=== PATIENT | male | born 2000 | race Asian ===

== ENCOUNTER 2022-12-06 13:29 | Emergency (ER) | payer OTHER, SELFPAY ==
[2022-12-06] VITALS (19 sets, daily range): BP systolic 111–155; BP diastolic 71–99; PULSE 60–90; RESP 9–23; TEMP 36.9; O2SAT 97–100
--- NOTE | ~2022-12-06 | XR_ITS ---
EXAMINATION: XR chest 1V portable Exam Date/Time: 12/06/2022 14:15 CDT HISTORY: CHEST TIGHTNESS X5 DAYS Comparison: None. RESULT: Lines, tubes, and devices: None. Lungs and pleura: Clear. Cardiomediastinal silhouette: Normal. Other: No acute osseous or upper abdominal finding. IMPRESSION: No acute cardiopulmonary process. Reviewed, dictated and finalized at location K.
--- NOTE | 2022-12-06 13:32 | ECG_ITS ---
Measurements Intervals [place] Rate: 68 P: 82 OK: 159 QRS: 93 QRSD: 104 T: 65 QT: 371 QTc: 396 Interpretive Statements SINUS RHYTHM WITH SINUS ARRHYTHMIA RIGHT AXIS DEVIATION INCOMPLETE RIGHT BUNDLE BRANCH BLOCK BASELINE WANDER- I, III, V1, V4-V6 BORDERLINE ECG NO PREVIOUS ECG AVAILABLE FOR COMPARISON Electronically Signed On 12-06-2022 17:48:50 CDT by Kevin Ritter D.O.
[2022-12-06 14:09] LABS: Basophils Percent Auto 0.5 % (0.2-1.2); Eosinophils Absolute Auto 0.2 K/mm3 (0-0.3); Eosinophils Percent Auto 2.7 % (0-4.4); Hematocrit 46.4 % (42.0-52.0); Hemoglobin 15.9 g/dL (14.0-18.0); Immature Granulocyte Absolute 0.01 K/mm3 (0.00-0.031); Immature Granulocyte Percent A 0.2 % (0-0.5); Lymphocytes Absolute Auto 2.58 K/mm3 (0.9-3.2); Lymphocytes Percent Auto 43.3 % (18.3-44.2); Mean Corpuscular HGB Conc 34.3 g/dl (32-36); Mean Corpuscular Volume 84.5 fl (80-100); Mean Platelet Volume 9.8 fl (7.4-10.4); Monocytes Absolute Auto 0.4 K/mm3 (0.1-0.6); Monocytes Percent Auto 6.2 % (2.6-8.5); Neutrophils Absolute Auto 2.8 K/mm3 (1.3-6.7); Neutrophils Percent Auto 47.1 % (45.5-73.1); Platelet Count Result 252 k/mm3 (150-375); Red Blood Count 5.49 M/mm3 (4.6-6.20); Red Cell Distribution Width 12.4 % (11.5-14.5)
[2022-12-06 14:34] LABS: Anion Gap 9 mmol/L (8-16); Blood Urea Nitrogen 18 mg/dL (9-20); Calcium 9.3 mg/dL (8.4-10.2); Carbon Dioxide 30 mmol/L (22-30); Chloride 101 mmol/L (98-107); Estimated CRCL calculation 109 ml/min; Estimated Glomerular Filt Rate > 60; Glucose 91 mg/dL (65-110); Potassium 3.4 mmol/L (3.4-5.0); Sodium 140 mmol/L (137-145)
[2022-12-06 14:43] LABS: Troponin I < 0.012 ng/mL (0.000-0.034)
--- NOTE | 2022-12-06 15:29 | ED.CHESTPAIN ---
HPI - Chest Pain General Chief Complaint: Chest Pain Stated Complaint: left sided CP Time Seen by Provider: 12/06/22 13:39 Source: patient Mode of arrival: ambulatory Limitations: no limitations History of Present Illness HPI narrative: 22 years old [place] male presented to the ED with intermittent chest pain over the last few days mainly at night before going to bed. He denies any fever, chills, nausea, vomiting, shortness of breath, alcohol use or drug abuse. Patient is healthy otherwise, been working out for a while. Possible stress. Related Data Allergies Allergy/AdvReac Type Severity Reaction Status Date / Time No Known Allergies Allergy Verified 12/06/22 13:30 Review of Systems Review of Systems: All systems reviewed & are unremarkable except as noted in HPI and below Exam Narrative: General appearance: Well-developed, well-nourished Skin: Normal color Head: Normocephalic, nontraumatic Eyes: Clear conjunctiva ENT: Oropharynx normal, ears normal, nose normal Neck: Supple, nontender Chest and respiratory: Airway patent, no respiratory distress, no accessory muscle use Heart: Regular rate/rhythm Abdomen: Soft, nontender, no organomegaly, quiet bowel sounds Vascular: Normal peripheral pulses, normal capillary refill. 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, no gross motor deficit Course Reevaluation(s) Reevaluation #1: Patient still asymptomatic, denying any chest pain, Date: 12/06/22 Time: 15:38 Vital Signs Vital signs: Vital Signs Temperature 36.9 C 12/06/22 13:36 Pulse Rate 73 12/06/22 13:36 Respiratory Rate 18 12/06/22 13:36 Blood Pressure 148/99 H 12/06/22 13:36 Pulse Oximetry 100 12/06/22 13:36 Oxygen Delivery Room Air 12/06/22 13:36 Temperature 36.9 C 12/06/22 13:36 Pulse Rate 77 12/06/22 13:47 Respiratory Rate 18 12/06/22 13:47 Blood Pressure 155/99 H 12/06/22 13:47 Pulse Oximetry 100 12/06/22 13:47 Oxygen Delivery Room Air 12/06/22 13:44 MDM - Chest Pain MDM Narrative Medical decision making narrative: Patient presents with nonspecific chest pain worse mainly at night before going to bed. Musculoskeletal, stress related is my concern. Work-up today including blood work-up, EKG and chest x-ray showed no significant abnormality to explain patient condition. Patient is asymptomatic, The pt was discharged to home.the pt,s condition upon discharge was fair,education was provided to the pt in reference to the final impression,discharge study results,treatment,prognosis and need for follow up . Differential Diagnosis Differential diagnosis: Likely pneumothorax, atypical chest pain and chest pain Lab Data 12/06/22 14:04 12/06/22 14:04 Labs: Lab Results 12/06/22 Range/Units 14:04 WBC 6.0 (4.5-10.0) K/mm3 RBC 5.49 (4.6-6.20) M/mm3 Hgb 15.9 (14.0-18.0) g/dL Hct 46.4 (42.0-52.0) % MCV 84.5 (80-100) fl MCH 29.0 (26-34) pg MCHC 34.3 (32-36) g/dl RDW 12.4 (11.5-14.5) % Plt Count 252 (150-375) k/mm3 MPV 9.8 (7.4-10.4) fl Immature Gran % (Auto) 0.2 (0-0.5) % Neut % (Auto) 47.1 (45.5-73.1) % Lymph % (Auto) 43.3 (18.3-44.2) % [place] % (Auto) 6.2 (2.6-8.5) % Eos % (Auto) 2.7 (0-4.4) % Baso % (Auto) 0.5 (0.2-1.2) % Lymph # (Auto) 2.58 (0.9-3.2) K/mm3 [place] # (Auto) 0.4 (0.1-0.6) K/mm3 Eos # (Auto) 0.2 (0-0.3) K/mm3 Baso # (Auto) 0.0 (0.0-0.1) K/mm3 Abs Immat Gran (auto) 0.01 (0.00-0.031) K/mm3 Absolute Neuts (auto) 2.8 (1.3-6.7) K/mm3 Absolute Nucleated RBC 0.0 (0.0-0.012) K/mm3 Nucleated RBC % 0.0
== END 2022-12-06 16:05 | disposition home or self-care (01) ==
PROVIDERS: Emergency Provider Emergency Medicine
DX: R07.9 Chest pain, unspecified (principal); I45.10 Unspecified right bundle-branch block
CPT/HCPCS: 36415; 71045; 80048; 84484; 85025; 93005; 99284